=== PATIENT | female | born 1990 | race Caucasian/White ===

== ENCOUNTER 2018-11-26 00:31 | Emergency (ER) | payer OTHER, SELFPAY ==
[2018-11-26 20:33] VITALS: BP 115/71; PULSE 73; RESP 14; TEMP 37.1; O2SAT 98; BMI 33.1
--- NOTE | 2018-11-26 20:50 | RAD_ITS ---
STUDY: X-RAY - LEFT ANKLE REASON FOR EXAM: Female, 28 years old. Pain. TECHNIQUE: 3 view(s) of the ankle. COMPARISON: None. FINDINGS: No visible fracture. No osseous destruction. Alignment anatomic. No significant degenerative changes. Soft tissues unremarkable. RAD/Ankle min 3 Views IMPRESSION: No acute osseous abnormality. Electronically Signed: Panfilo Hernandez, at 21:33 EDT Tel , Service support ,
--- NOTE | 2018-11-26 21:17 | ED.DCSUM_ITS ---
- ER Visit Summary Date of Service: 11/26/18 Chief Complaint: Left lateral ankle pain and swelling History of Present Illness: The patient is a 28 F past medical history of depression. Patient was walking down steps today and tripped lost her balance and twisted her left ankle and fell down several steps. No other injuries other than abrasion to her knee. Did not hit her head. No LOC. This occurred around 1:00 today. She is had ankle sprains before no prior fractures or ankle surgery. Physical Examination: Well-appearing 28-year-old female. No acute distress. Vital signs stable afebrile. H EENT exam atraumatic nontender. Pupils round reactive light. C-spine nontender. Trachea midline. Lungs clear to auscultation bilaterally. Heart regular rhythm no murmur. Chest were nontender. Abdomen soft nontender. Pelvic girdle intact. C-spine and back nontender. Upper extremities nontender with normal range of motion normal motor strength and sensation. Right lower extremity unremarkable. Nontender. Left hip and knee nontender with normal range of motion. Left lateral malleolus is tender and swollen. No gross bony deformity. Medial malleolus is nontender nonswollen. Achilles tendon is intact. DP pulse intact. Foot nontender. No deformities. Able to wiggle her toes. Normal touch sensation. Dorsi and plantarflexion is intact. Neurologically she is awake alert no focal motor deficits. Abrasion of the right knee but she has full range of motion the right knee. There is no effusion. And there is no bony deformity. Test Results: Left ankle x-ray 3 views read by myself shows mild soft tissue swelling laterally otherwise no acute process. No fracture or dislocation. I will go over the films with the patient. Emergency Department Course and Treatment: Left ankle sprain. Ice and elevate. Motrin Tylenol for pain. Increase activities as tolerated. Aircast. Crutches Treatment Plan: Ice elevate. Increase activity as tolerated. Aircast. Follow-up if not improving. Disposition: Discharge Impression: Left ankle sprain Fall Right knee abrasion This note was generated with [employer] software. It may contain incorrect words, spelling, and punctuation that were not noted in review of the chart prior to signing ED Disposition - Plan for ED Patient: Disposition: Home or Assisted Living Instructions: Sprain, Ankle, with X-Ray Referrals: Dat Garcia MD [STAFF PHYSICIAN] - 1 Week if not improving Additional Instructions: Ice and elevate. Tylenol and Motrin for pain and swelling. Increase activity as tolerated. Follow-up if not improving.
--- NOTE | 2018-11-26 21:20 | ED.DEP ---
ED Disposition - Plan for ED Patient: Disposition: Home or Assisted Living Instructions: Sprain, Ankle, with X-Ray Referrals: Dat Garcia MD [STAFF PHYSICIAN] - 1 Week if not improving Additional Instructions: Ice and elevate. Tylenol and Motrin for pain and swelling. Increase activity as tolerated. Follow-up if not improving.
== END 2018-11-26 21:34 | disposition home or self-care (01) ==
PROVIDERS: Emergency Provider Emergency Medicine
DX: S93.402A Sprain of unspecified ligament of left ankle, initial encounter (principal); S80.211A Abrasion, right knee, initial encounter; W10.9XXA Fall (on) (from) unspecified stairs and steps, initial encounter; Y93.01 Activity, walking, marching and hiking; Y92.9 Unspecified place or not applicable; F32.9 Major depressive disorder, single episode, unspecified; Z79.899 Other long term (current) drug therapy; Z72.0 Tobacco use
CPT/HCPCS: 73610; 99284